=== PATIENT | female | born 2000 | race Caucasian/White ===

== ENCOUNTER 2022-05-14 10:55 | Emergency (ER) | payer MEDICAID, SELFPAY ==
[2022-05-14] VITALS (14 sets, daily range): BP systolic 101–158; BP diastolic 56–82; PULSE 10–135; RESP 14–34; TEMP 36.6–37.8; O2SAT 79–100; BMI 24.7
[2022-05-14] MEDS: LORazepam 2 MG/ML Syringe IV (11:00)
--- NOTE | 2022-05-14 11:09 | CT_ITS ---
STUDY: CT BRAIN WITHOUT CONTRAST REASON FOR EXAM: Female, 21 years old. Altered mental status. Patient is unresponsive. RADIATION DOSAGE (If Supplied By Facility): CTDIvol = ( 44.99 ) mGy, DLP = ( 779.24 ) mGycm TECHNIQUE: Transaxial CT imaging of the brain was performed without administration of intravenous contrast material. Individualized dose optimization techniques were used for this CT. COMPARISON: No relevant priors. FINDINGS: Normal soft tissue structures. Normal calvarium. Normal size ventricles and extra-axial spaces for the patient''s age. Normal white matter tracts of the cerebral hemispheres. Normal basal ganglia and thalami. Normal brainstem. Normal cerebellum. There is no intracranial hemorrhage. There are no findings of an acute ischemic infarction. Partial opacification of the left maxillary sinus. Mucosal thickening of the right maxillary sinus. Partial opacification of the ethmoid sinuses. CT/Brain/Head without Contrast IMPRESSION: Normal unenhanced CT scan of the brain. Sinusitis. Electronically Signed: Nas Pereira MD at 12:10 EDT ,
--- NOTE | 2022-05-14 11:10 | EKG12_ITS ---
Test Reason : ALOC Blood Pressure : / mmHG Vent. Rate : 091 BPM Atrial Rate : 091 BPM P-R Int : 092 ms QRS Dur : 076 ms QT Int : 380 ms P-R-T Axes : -06 069 044 degrees QTc Int : 467 ms Sinus rhythm with short [place] Otherwise normal ECG Confirmed by ROS TRONCOSO, JAE ([id number]), multimedia editor RAKESH HENDRICKS ([id number]) on 05/16/2022 6:40:02 AM Referred By: Confirmed By:JAE SOMMER MD
--- NOTE | 2022-05-14 11:21 | RAD_ITS ---
STUDY: X-RAY CHEST REASON FOR EXAM: Female, 21 years old. Sob TECHNIQUE: Single AP portable view of the chest. COMPARISON: None. FINDINGS: EKG electrodes are seen. The lungs are clear and expanded. There is no demonstrated pleural abnormality. Normal size heart. Normal mediastinum and tisha. Normal visualized pulmonary arteries. Normal visualized aortic arch and descending thoracic aorta. Normal visualized thoracic spine. Normal visualized ribs, clavicles, and shoulders. There is no demonstrated abnormality of the visualized soft tissue structures of the upper abdomen. RAD/Chest 1 View (Portable) IMPRESSION: Normal x-ray examination of the chest. Electronically Signed: Nas Pereira MD at 12:00 EDT ,
[2022-05-14] MEDS: 0.9% Normal Saline 1,000 ML 1000 ML IV ×2 (11:31→12:24)
[2022-05-14 11:33] LABS: Internal QC Validated? YES +Cl - CLEAR BKGD; Pregnancy, Urine Negative Negative
[2022-05-14 11:36] LABS: Absolute Neutrophil Count 26.3 X10^3/uL (2.0-7.7); Basophil# 0.05 X10^3/uL; Basophil% 0.2 % (0-1); Hemoglobin 12.3 g/dL (12.0-15.0); Lymphocyte % 4.4 % (19-41); Mean Corp Hgb Conc 33.2 g/dL (32-36); Mean Corpuscular Hgb 23.3 pg (27.0-32.0); Mean Corpuscular Volume 70.1 fL (81-99); Mean Platelet Vol. 9.6 fl (6.2-12.0); Monocyte# 1.49 X10^3/uL; Monocyte% 5.1 % (0-10); NRBC Flagged by Analyzer 0 % (0-5); Neutrophil % 89.1 % (47-70); POSITIVE DIFFERENTIAL YES; Platelet Count 401 K/mm3 (150-450); RBC Distribution Width CV 17.1 % (11.6-14.6); RBC Distribution Width SD 42.5 fl (35.1-43.9); Red Blood Count 5.28 M/mm3 (4.2-5.4); White Blood Count 29.5 K/mm3 (4.4-11.0)
[2022-05-14 11:37] LABS: Differential Indicated SCAN CRITERIA MET
[2022-05-14 11:37] LABS: White Blood Cells 0 SEEN /hpf (0-5)
--- NOTE | 2022-05-14 11:43 | ED.RN ---
INSULIN PUMP REMOVED AT 1110, PT CONTINUES WITH SNORING RESPIRATION, WITHDRAWS ONLY TO PAINFUL STIMULI. FATHER AT BEDSIDE, DENIES HISTORY OF SEIZURES OR ANY ATTEMPTS AT OVERDOSING. FATHER STATES HE SAW HER LAST NIGHT AND SHE SEEMED A LITTLE DOWN, CAT JUST . ROOM MATE HAD CONCERNS WELL, STATED SHE CHECKED ON HER EVERY COUPLE OF HOURS DURING THE NIGHT. FOUND THIS AM HAVING VOMITED IN BED.
[2022-05-14 11:45] LABS: Blood Gas Specimen Type VEN; O2 Delivery Device NRB; VBG BASE EXCESS -5 mmol/L (-1.0-3.5); VBG Bicarbonate 20 mmol/L (22-26); VBG PO2 48 mmHg (25-40); VBG SO2 85 % (50-70); VBG TCO2 20 mmol/L (23-33); VBG pCO2 29.5 mmHg (41-51); VBG pH 7.43 (7.32-7.42)
[2022-05-14 11:47] LABS: Color, Urine Yellow (Yellow); Glucose, Dipstick 1000 mg/dl (Normal); Ketone-Dipstick 15 mg/dl (Negative); Leukocyte Esterase-Dipstick Negative /ul (Negative); Nitrite-Dipstick Negative (Negative); Occult Blood-Urine 25 /ul (Negative); Protein-Dipstick 30 mg/dl (Negative); Specific Gravity, Urine 1.015 (1.002-1.030); Urine Bilirubin Dipstick Negative (Negative); Urine Clarity Sl. Cloudy (Clear); Urine Urobilinogen Normal (Normal)
[2022-05-14 11:54] LABS: Bacteria 1+ /hpf (None Seen); Mucous, Urine 2+ /hpf (<or=2+); Red Blood Cells-Urine 0-5 SEEN /hpf (0-5); Squamous Epithelial Cells - UA 0-5 SEEN /hpf (5-10)
[2022-05-14 11:59] LABS: Amphetamine Urine VISTA NEGATIVE (<1000 ng/mL); Barbiturate Urine VISTA NEGATIVE (< 200 ng/mL); Benzodiazepine Urine VISTA NEGATIVE (< 200 ng/mL); Cocaine Urine VISTA NEGATIVE (< 300 ng/mL); Ecstacy Urine VISTA POSITIVE (< 500 ng/mL); Methadone Urine VISTA NEGATIVE (< 300 ng/mL); PCP Urine VISTA NEGATIVE (< 25 ng/mL); THC Urine VISTA NEGATIVE (< 50 ng/mL); Vista UDS pH Range 5
[2022-05-14 12:00] LABS: ALB/GLOB Ratio 0.8 RATIO (0.9-2.4); AST(SGOT) 37 U/L (15-37); Alanine Aminotransfer ALT/SGPT 20 U/L (13-56); Albumin, Serum 3.4 g/dL (3.2-5.0); Alkaline Phosphatase 65 U/L (45-117); Anion Gap 15 (5-15); BUN 12 mg/dL (7-18); BUN/Creat Ratio 9.6 RATIO (10-20); Calcium,Total 8.9 mg/dL (8.5-10.1); Chloride 104 mmol/L (98-107); Creatinine, Serum 1.25 mg/dL (0.55-1.02); EST Glomerular Filtration Rate 58 mL/min (>60); Est Glom Filt Rate - Afr Amer 70 mL/min (>60); Estimated Creatinine Clearance 59.39 ml/min; Globulin 4.4 g/dL (2.2-4.2); Glucose 229 mg/dL (74-106); Potassium 4.3 mmol/L (3.5-5.1); Protein, Total 7.8 g/dL (6.4-8.2); Sodium Level 139 mmol/L (136-145); Troponin-I HS 22 pg/mL (3.0-54.0)
[2022-05-14 12:06] LABS: Platelet Estimate ADEQUATE (ADEQ); Red Cell Morphology NORM C+C NORMAL (NORM C&C)
[2022-05-14 12:07] LABS: Alcohol, Blood (Medical)-Serum < 3.0 mg/dL
[2022-05-14 12:08] LABS: Lactic Acid 6.3 mmol/L (0.4-1.9)
--- NOTE | 2022-05-14 12:16 | EDS_ITS ---
HPI History of Present Illness Chief Complaint: Alt LOC Informant: family, friend and EMS Narrative Narrative: 21-year-old female brought in by EMS after being found unresponsive by roommate. Per roommate, patient came home from work upset last night. She states she checked on her throughout the night up until 2 AM and she was doing okay. This morning around 10 AM she found her in bed and was unable to wake her. She states she had emesis around her. She states she checked her purse and around her and there was no evidence of pills or overdosing. EMS was called. She was given Narcan per EMS. On arrival she she does not open eyes to voice or pain. Withdraws to pain. She is breathing rapidly. Her father arrived and stated he was with her until 9pm last night and she was doing well at that time. Recent Illness/Hospitalization: No PFSH PFSH Medical History Hypothyroid Type 1 diabetes Home Medications insulin lispro 100 unit/mL subcutaneous solution 05/14/22 [History Last Taken Unknown] Allergy/AdvReac Type Severity Reaction Status Date / Time Penicillins AdvReac Rash Verified 05/14/22 11:30 Social History Smoking Status: Never smoker ROS ROS ED Review of Systems ROS Unobtainable: due to mental status EXAM Physical Exam Const Vital Signs: 05/14/22 10:57 05/14/22 11:11 05/14/22 11:21 Temperature 100.1 F H Temperature Source Temporal Pulse Rate 92 111 H Respiratory Rate 26 H 25 H Respiratory Effort Respiratory Depth Respiratory Pattern Blood Pressure 158/71 H Blood Pressure Mean 100 Pulse Ox 79 100 100 Oxygen Delivery Method Room Air Non-Rebreather Non-Rebreather Oxygen Flow Rate (L/min) 15 15 Fraction of Inspired Oxygen (FIO2) 100 100 05/14/22 11:21 05/14/22 11:39 05/14/22 12:29 Temperature 98 F Temperature Source Temporal Pulse Rate 96 111 H Respiratory Rate 34 H 33 H Respiratory Effort Labored Respiratory Depth Normal Respiratory Pattern Normal Blood Pressure 103/58 L 104/71 Blood Pressure Mean 73 82 Pulse Ox 100 100 100 Oxygen Delivery Method Non-Rebreather Non-Rebreather Non-Rebreather Oxygen Flow Rate (L/min) 15 15 15 Fraction of Inspired Oxygen (FIO2) 05/14/22 13:04 05/14/22 13:43 05/14/22 13:00 Temperature Temperature Source Pulse Rate 113 H 10 L Respiratory Rate 33 H 25 H Respiratory Effort Labored Respiratory Depth Shallow Respiratory Pattern Tachypnea Blood Pressure 101/69 Blood Pressure Mean 79 Pulse Ox 100 100 Oxygen Delivery Method Mechanical Ventilator Oxygen Flow Rate (L/min) Fraction of Inspired Oxygen (FIO2) 70 05/14/22 14:16 05/14/22 15:03 05/14/22 15:24 Temperature Temperature Source Pulse Rate 111 H 101 H 97 Respiratory Rate 24 H 20 H 16 Respiratory Effort Respiratory Depth Respiratory Pattern Blood Pressure 116/61 109/56 L 126/64 H Blood Pressure Mean 79 73 84 Pulse Ox 100 100 100 Oxygen Delivery Method Mechanical Ventilator Mechanical Ventilator Mechanical Ventilator Oxygen Flow Rate (L/min) Fraction of Inspired Oxygen (FIO2) 05/14/22 15:56 05/14/22 16:14 05/14/22 16:15 Temperature Temperature Source Pulse Rate 97 134 H 135 H Respiratory Rate 17 27 H 27 H Respiratory Effort Respiratory Depth Respiratory Pattern Blood Pressure 132/82 H 132/82 H Blood Pressure Mean 98 98 Pulse Ox 99 95 100 Oxygen Delivery Method Mechanical Ventilator Oxygen Flow Rate (L/min) Fraction of Inspired Oxygen (FIO2) 50 Positive well nourished and well developed Constitutional Narrative: No evidence of head trauma General Appearance ED: well developed HEENT Reports normocephalic and head/scalp atraumatic Eyes PERRL and EOMs intact bilaterally Neck supple General: Negative for tenderness Chest Wall inspection of chest normal Resp Resp Narrative: Bilateral rhonchi, tachypnea Auscultation: rhonchi Cardio regular rhythm Rate: tachycardic GI non-tender and non-distended Palpation: soft; Negative for guarding or rebound tenderness present no CVA tenderness Extremity normal to inspection Neuro Neuro Narrative: Withdraws to pain. Does not follow commands. Skin no rashes or lesions noted MDM MDM MDM Narrative Medical decision making narrative: Initial blood glucose 270. Patient began to have shaking of upper extremities with concern for seizure she was given 2 mg of Ativan IV. She was given IV fluids, 30 cc/kg. Blood cultures were sent. Due to concern for aspiration she was given Rocephin and Flagyl IV, penicillin allergy. unable to obtain ABG due to patient withdrawing from pain but VBG was obtained. Urinalysis shows 0 white blood cells, 0-5 red blood cells. negative. Tox screen positive for MDMA. Alcohol negative. White count 29.5. Creatinine 1.25, glucose 229 lactic acid 6.3. Repeat lactic acid 1.1. Acetone negative. Chest x-ray read by myself and radiology shows no acute process. CT head shows no acute process. On multiple reevaluations patient does withdraw to pain but does not open eyes to pain or voice. She does not follow commands. Discussed with laser machine operator Dr. Dawson. Recommends transfer to tertiary care center due to need for neurology evaluation. She was given Keppra IV. She was intubated with 7.5 ETT. [place] scope was used to visualize the cords. Difficulty passing tube through the cords. Airway team was called for assistance. She was intubated by anesthesia. Bilateral breath sounds. ET tube was pulled back after chest x-ray performed. Discussed with [facility] for transfer. Due to prolonged wait for bed, discussed with [facility] and patient will be transferred to [facility]. Family was updated at bedside. Lab Data Attestation: I reviewed the patient's lab results. Labs: Laboratory Results - last 24 hr 05/14/22 05/14/22 05/14/22 11:01 11:18 11:18 WBC RBC Hgb Hct MCV MCH MCHC RDW Std Deviation RDW Coeff of Paulino Plt Count MPV Immature Gran % (Auto) Neut % (Auto) Lymph % (Auto) [place] % (Auto) Eos % (Auto) Baso % (Auto) Absolute Neuts (auto) Absolute Lymphs (auto) Nucleated RBC % Differential Comment Platelet Estimate RBC Morphology Sodium Potassium Chloride Carbon Dioxide Anion Gap BUN Creatinine Estim Creat Clear Calc Est GFR (MDRD) Af Amer Est GFR (MDRD) Non-Af BUN/Creatinine Ratio Glucose Lactic Acid Calcium Total Bilirubin AST ALT Alkaline Phosphatase Troponin I High Sens Total Protein Albumin Globulin Albumin/Globulin Ratio TSH Urine Color Yellow Urine Clarity Sl. Cloudy Urine pH 6.0 Ur Specific [place] 1.015 Urine Protein 30 H Urine Glucose (UA) 1000 H Urine Ketones 15 H Urine Occult Blood 25 H Urine Nitrite Negative Urine Bilirubin Negative Urine Urobilinogen Normal Ur Leukocyte Esterase Negative Urine RBC 0-5 SEEN Urine WBC 0 SEEN Ur Squamous Epith Cells 0-5 SEEN Urine Bacteria 1+ Urine Mucus 2+ Urine Test Negative Salicylates Urine Opiates Screen Urine Methadone Screen Acetaminophen Ur Barbiturates Screen Ur Phencyclidine Scrn Ur Amphetamines Screen MDMA (Ecstasy) Screen U Benzodiazepines Scrn Urine Cocaine Screen U Cannabinoids Screen Ur Drug Screen Comment Ethyl Alcohol Acetone Level POC Glucose 249 H 05/14/22 05/14/22 05/14/22 11:18 11:20 11:20 WBC 29.5 H RBC 5.28 Hgb 12.3 Hct 37.0 MCV 70.1 L MCH 23.3 L MCHC 33.2 RDW Std Deviation 42.5 RDW Coeff of Paulino 17.1 H Plt Count 401 MPV 9.6 Immature Gran % (Auto) 1.200 H Neut % (Auto) 89.1 H Lymph % (Auto) 4.4 L [place] % (Auto) 5.1 Eos % (Auto) 0.0 Baso % (Auto) 0.2 Absolute Neuts (auto) 26.3 H Absolute Lymphs (auto) 1.30 Nucleated RBC % 0 Differential Comment Platelet Estimate ADEQUATE RBC Morphology NORM C+C Sodium 139 Potassium 4.3 Chloride 104 Carbon Dioxide 20.0 L Anion Gap 15 BUN 12 Creatinine 1.25 H Estim Creat Clear Calc 59.39 Est GFR (MDRD) Af Amer 70 Est GFR (MDRD) Non-Af 58 L BUN/Creatinine Ratio 9.6 L Glucose 229 H Lactic Acid Calcium 8.9 Total Bilirubin 0.70 AST 37 ALT 20 Alkaline Phosphatase 65 Troponin I High Sens 22 Total Protein 7.8 Albumin 3.4 Globulin 4.4 H Albumin/Globulin Ratio 0.8 L TSH 0.90 Urine Color Urine Clarity Urine pH Ur Specific [place] Urine Protein Urine Glucose (UA) Urine Ketones Urine Occult Blood Urine Nitrite Urine Bilirubin Urine Urobilinogen Ur Leukocyte Esterase Urine RBC Urine WBC Ur Squamous Epith Cells Urine Bacteria Urine Mucus Urine Test Salicylates Urine Opiates Screen NEGATIVE Urine Methadone Screen NEGATIVE Acetaminophen Ur Barbiturates Screen NEGATIVE Ur Phencyclidine Scrn NEGATIVE Ur Amphetamines Screen NEGATIVE MDMA (Ecstasy) Screen POSITIVE H U Benzodiazepines Scrn NEGATIVE Urine Cocaine Screen NEGATIVE U Cannabinoids Screen NEGATIVE Ur Drug Screen Comment Ethyl Alcohol Acetone Level POC Glucose 05/14/22 05/14/22 05/14/22 11:20 11:20 11:20 WBC RBC Hgb Hct MCV MCH MCHC RDW Std Deviation RDW Coeff of Paulino Plt Count MPV Immature Gran % (Auto) Neut % (Auto) Lymph % (Auto) [place] % (Auto) Eos % (Auto) Baso % (Auto) Absolute Neuts (auto) Absolute Lymphs (auto) Nucleated RBC % Differential Comment Platelet Estimate RBC Morphology Sodium Potassium Chloride Carbon Dioxide Anion Gap BUN Creatinine Estim Creat Clear Calc Est GFR (MDRD) Af Amer Est GFR (MDRD) Non-Af BUN/Creatinine Ratio Glucose Lactic Acid 6.3 H* Calcium Total Bilirubin AST ALT Alkaline Phosphatase Troponin I High Sens Total Protein Albumin Globulin Albumin/Globulin Ratio TSH Urine Color Urine Clarity Urine pH Ur Specific [place] Urine Protein Urine Glucose (UA) Urine Ketones Urine Occult Blood Urine Nitrite Urine Bilirubin Urine Urobilinogen Ur Leukocyte Esterase Urine RBC Urine WBC Ur Squamous Epith Cells Urine Bacteria Urine Mucus Urine Test Salicylates < 1.7 L Urine Opiates Screen Urine Methadone Screen Acetaminophen < 2.0 L Ur Barbiturates Screen Ur Phencyclidine Scrn Ur Amphetamines Screen MDMA (Ecstasy) Screen U Benzodiazepines Scrn Urine Cocaine Screen U Cannabinoids Screen Ur Drug Screen Comment Ethyl Alcohol < 3.0 Acetone Level NEGATIVE POC Glucose 05/14/22 15:41 WBC RBC Hgb Hct MCV MCH MCHC RDW Std Deviation RDW Coeff of Paulino Plt Count MPV Immature Gran % (Auto) Neut % (Auto) Lymph % (Auto) [place] % (Auto) Eos % (Auto) Baso % (Auto) Absolute Neuts (auto) Absolute Lymphs (auto) Nucleated RBC % Differential Comment Platelet Estimate RBC Morphology Sodium Potassium Chloride Carbon Dioxide Anion Gap BUN Creatinine Estim Creat Clear Calc Est GFR (MDRD) Af Amer Est GFR (MDRD) Non-Af BUN/Creatinine Ratio Glucose Lactic Acid 1.1 Calcium Total Bilirubin AST ALT Alkaline Phosphatase Troponin I High Sens Total Protein Albumin Globulin Albumin/Globulin Ratio TSH Urine Color Urine Clarity Urine pH Ur Specific [place] Urine Protein Urine Glucose (UA) Urine Ketones Urine Occult Blood Urine Nitrite Urine Bilirubin Urine Urobilinogen Ur Leukocyte Esterase Urine RBC Urine WBC Ur Squamous Epith Cells Urine Bacteria Urine Mucus Urine Test Salicylates Urine Opiates Screen Urine Methadone Screen Acetaminophen Ur Barbiturates Screen Ur Phencyclidine Scrn Ur Amphetamines Screen MDMA (Ecstasy) Screen U Benzodiazepines Scrn Urine Cocaine Screen U Cannabinoids Screen Ur Drug Screen Comment Ethyl Alcohol Acetone Level POC Glucose ABG Data ABG results: ABG 05/14/22 11:37 Specimen Type RENETTA VBG pH 7.43 H VBG pO2 48 H VBG HCO3 20 L VBG Total CO2 20 L VBG O2 Sat (Calc) 85 H VBG Base Excess -5 L POC Mix VBG pCO2 Pt Tmp 29.5 L O2 Delivery Device NRB Radiography Chest X-Ray - ED: 1 View, Read by ED Physician and Read by Radiologist Diagnostic Testing: Clinical Impression(s) from Imaging Studies Brain CT 05/14/22 11:09 IMPRESSION: Normal unenhanced CT scan of the brain. Sinusitis. Electronically Signed: Nas Pereira MD at 12:10 EDT , Chest X-Ray 05/14/22 11:21 IMPRESSION: Normal x-ray examination of the chest. Electronically Signed: Nas Pereira MD at 12:00 EDT , Chest X-Ray 05/14/22 13:30 IMPRESSION: The endotracheal tube is in good position. Increased markings in the left parahilar region. Electronically Signed: Nas Pereira MD at 14:02 EDT , Chest X-Ray 05/14/22 13:35 IMPRESSION: The tip of the nasogastric tube is in the right mainstem bronchus. This should be pulled back approximately 2.7 cm. The distal portion of the oral gastric tube is coiled in the fundal portion of the stomach. Increased left parahilar markings. Electronically Signed: Nas Pereira MD at 14:01 EDT , EKG Initial EKG: Attestation: I personally reviewed and interpreted this EKG as follows: Interpretation: Sinus Rhythm and No Acute Injury Pattern Critical Care Time Critical Care Time: Yes Critical care time (excluding procedures): 30-74 minutes, Discussing w/Patient &/or Family/Cartographic Technician, Discussing w/Consultants, Arranging Admission or Transfer and Performing Direct Patient Care at Bedside Discharge Plan Triage Chief Complaint: Alt LOC ED Provider: Shelli Caballero Dx/Rx/DC Orders Clinical Impression: Altered mental status, Lactic acidosis, Aspiration into airway, Seizure, MDMA (methylenedioxymethamphetamine) poisoning, Respiratory failure Prescriptions: No Action insulin lispro 100 unit/mL solution Label Comments: USE UP TO 100 UNITS DAILY VIA INSULIN PUMP Primary Care Provider: Jonah Bob Referrals: Jonah Bob MD [Primary Care Provider] - Disposition Disposition: Acute Care Hospital Discharge Location: [facility]
[2022-05-14 12:21] LABS: Acetaminophen (Tylenol) Level < 2.0 ug/mL (10.0-30.0); Salicylate < 1.7 mg/dL (2.8-20.0)
[2022-05-14] MEDS: Ceftriaxone 1 GM/50 ML BAG IV (12:25)
--- NOTE | 2022-05-14 12:37 | CM.ED ---
SW Note Referral Source: Case Find Referral Reason: Per EMS report patient's roommate said that patient was depressed. SW met with patient's father. Father, Noé, is from [place]. Noé said that patient is from [place]. Patient's roommate, boyfriend and younger brother are in the waiting room and more family is on the way. 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 Grades good. 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 SW asked father if he thought patient was sador depressed. Father said that patient has been sad as he cat . Father said that patient had rescued the cat and the cat got suddenly sick and patient put alot of money into the cat. Emotional support provided. Shari NAVARRETE
[2022-05-14] MEDS: Etomidate 20 MG/10 ML Vial IV ×2 (13:03→13:19)
[2022-05-14] MEDS: Succinylcholine Chloride 200 MG/10 ML Vial 100 MG IV (13:04)
[2022-05-14] MEDS: Succinylcholine Chloride 200 MG/10 ML Vial 50 MG IV ×2 (13:10→13:22)
[2022-05-14 13:25] LABS: Bedside Glucose 249 mg/dL (74-106)
--- NOTE | 2022-05-14 13:30 | RAD_ITS ---
STUDY: X-RAY CHEST REASON FOR EXAM: Female, 21 years old. ETT, OG PLACEMENT, ATTEMPT 2 TECHNIQUE: Single AP portable view of the chest. COMPARISON: Comparison is made with prior study done earlier in the day at 1:25 PM. FINDINGS: The tip of the endotracheal tube is at 2.5 cm proximal to the lay. The tip of the orogastric tube is unchanged. EKG electrodes are seen. With again, there is evidence of increased markings in the left parahilar region. There is no demonstrated pleural abnormality. Normal size heart. Normal mediastinum and tisha. Normal visualized pulmonary arteries. Normal visualized aortic arch and descending thoracic aorta. Normal visualized thoracic spine. Normal visualized ribs, clavicles, and shoulders. There is no demonstrated abnormality of the visualized soft tissue structures of the upper abdomen. RAD/Chest 1 View (Portable) IMPRESSION: The endotracheal tube is in good position. Increased markings in the left parahilar region. Electronically Signed: Nas Pereira MD at 14:02 EDT ,
[2022-05-14] MEDS: metroNIDAZOLE 500 MG/100 ML BAG 100 MG IV (13:31)
--- NOTE | 2022-05-14 13:32 | CM.ED ---
FAM updated patient's family that patient was intubated and per Daniela RN patient was stable. FAM called [facility] and requested patient's med list be faxed to this web content writer. Shari NAVARRETE
--- NOTE | 2022-05-14 13:35 | RAD_ITS ---
STUDY: X-RAY CHEST REASON FOR EXAM: Female, 21 years old. INTUBATION TECHNIQUE: Single AP portable view of the chest. COMPARISON: Comparison is made with prior study 05/14/2022 at 11:17 AM. FINDINGS: An endotracheal tube is in situ. The tip is at the origin of the right mainstem bronchus. Patient be withdrawn approximately 2.7 cm. An orogastric tube is seen with the distal portion coiled in the fundal portion of the stomach. At this time, there is a mild degree of increased left perihilar markings. There is no demonstrated pleural abnormality. Normal size heart. Normal mediastinum and tisha. Normal visualized pulmonary arteries. Normal visualized aortic arch and descending thoracic aorta. Normal visualized thoracic spine. Normal visualized ribs, clavicles, and shoulders. There is no demonstrated abnormality of the visualized soft tissue structures of the upper abdomen. RAD/Chest 1 View (Portable) IMPRESSION: The tip of the nasogastric tube is in the right mainstem bronchus. This should be pulled back approximately 2.7 cm. The distal portion of the oral gastric tube is coiled in the fundal portion of the stomach. Increased left parahilar markings. Electronically Signed: Nas Pereira MD at 14:01 EDT ,
--- NOTE | 2022-05-14 13:36 | ED.RN ---
[facility] called stating the only medication they have listed for her was an antibiotic a couple months ago. they do not even have insulin listed
--- NOTE | 2022-05-14 13:37 | PCM.PN.BLA ---
Progress Note Called to the emergency room for a stat airway 21-year-old white female who was found unresponsive surrounded by emesis and now is in need of intubation. Initial attempts were unsuccessful. Anesthesia gave succinylcholine and then successfully intubated the patient with a Glidescope for visualization. She tolerated this well and no surgical intervention was needed. She did not drop her saturations during the procedure.
[2022-05-14] MEDS: Propofol 10MG/Ml 1,000 MG/100 ML Bottle 3.8 MG CONT INF (13:45)
[2022-05-14] MEDS: levETIRAcetam IV 1,000 MG/100 ML BAG 400 MG IV (14:08)
--- NOTE | 2022-05-14 14:53 | ED.RN ---
PER ROOM MATE PT FELT SHE MIGHT NEED TO BE ADMITTED TO A PSYCHIATRIC HOSPITAL LAST NIGHT. PT HAS HX OF DROPPING ACID, USING THC AND EATING MUSHROOMS. UPDATED.
[2022-05-14 15:30] LABS: Reflex Lactate? Y
[2022-05-14 16:14] LABS: Lactic Acid 1.1 mmol/L (0.4-1.9)
--- NOTE | 2022-05-14 16:51 | BH.SGPN.TEST ---
Group Topic: [] # of Participants: [] Goal of Group: [] Staff Interventions: []
--- NOTE | 2022-05-14 16:51 | CM.ED ---
FAM Note SW called [facility] and left message for ICU social organization professor as the FAM office was closed. FAM advised of the EMS report regarding patient's roommate saying patient had depression and roommate statement to RN that patient's roommate felt patient needed inpatient psych last night and she kept getting up to check on patient. SW left call back phone number and name if additional information is needed. Shari Thompson
--- NOTE | 2022-05-14 16:56 | ED.RN ---
Addendum entered by Daniela Lam 05/14/22 16:57: NOTE FOR RESTRAINT APPLICATION AT 1340. Original Note: PT AGITATED, RESTLESS, MOVING ALL EXTREMITIES. UNABLE TO REDIRECT PT, SEDATED AND INTUBATED.
--- NOTE | 2022-05-17 16:10 | CM.ED ---
FAM received call from Odilia at [facility] inquiring as to the status of patient. For continuity of care and to ensure that patient had good follow up when discharged from facility FAM provided Odilia with update that patient was sent to [facility] and concerns regarding her mental health. Shari NAVARRETE
== END 2022-05-14 18:00 | disposition short-term general hospital (02) ==
PROVIDERS: Emergency Provider Emergency Medicine; PCP Pediatrics; Visit Provider Emergency Medicine
DX: T43.641A Poisoning by ecstasy, accidental (unintentional), initial encounter (principal); J96.90 Respiratory failure, unspecified, unspecified whether with hypoxia or hypercapnia; R56.9 Unspecified convulsions; R41.82 Altered mental status, unspecified; E87.20 Acidosis, unspecified
CPT/HCPCS: G0463; 31500; 31720; 51702; 70450; 71045; 80053; 80307; 80329; 81001; 81025; 82009; 82077; 82803; 82962; 83605; 84443; 84484; 85025; 87040; 87086; 87428; 93005; 94002; 96365; 96367; 96375; 96376; 99251; 99285; J7030; A4216; G0480; J0330